=== PATIENT | female | born 1955 | race Caucasian/White ===

== ENCOUNTER → 2017-01-22 | Outpatient (CLI) | payer BC ==
[~2017-01-22] MED LIST: IOPAMIDOL (ISOVUE-300) 100 ML BTL ONE
== END ==
LOC: FIMAGING 10:52
PROVIDERS: ATTEND Family Medicine
DX: N20.0 Calculus of kidney (principal); R31.9 Hematuria, unspecified; I70.0 Atherosclerosis of aorta
CPT/HCPCS: Q9967

== ENCOUNTER → 2017-02-28 | Outpatient (CLI) | payer BC | LOC: FIMAGING 10:01 | PROVIDERS: ATTEND Family Medicine | DX: Z12.31 Encounter for screening mammogram for malignant neoplasm of breast (principal); Z13.820 Encounter for screening for osteoporosis; M85.80 Other specified disorders of bone density and structure, unspecified site; E07.9 Disorder of thyroid, unspecified; Z78.0 Asymptomatic menopausal state | CPT/HCPCS: G0202 ==

== ENCOUNTER 2017-03-05 11:15 | Day surgery (SDC) | payer BC ==
--- NOTE | 2017-03-05 13:06 | PDGENHP ---
History & Physical Chief Complaint: Bilateral renal stones History of Present Illness: Passed two kidney stones. Has bilateral nephrolithiasis by CT. Hyperparathyroidism, hypercalcemia, osteopenic. Diabetes II, on metformin. Hyperlipidemia Cardiorespiratory Assessment: Lungs: clear to auscultation. Heart: RRR, no murmur, 88 bpm.
--- NOTE | 2017-03-05 13:10 | PDPROPOC ---
Sedation Plan of Care Sedation Plan of Care: mental status noted, patient educated of risks, benefits , alternatives, patient can tolerate sedation ASA Classification: ASA 2 Planned drugs: fentanyl, midazolam, other (dexmetatomidine) Mallampati Score: Class 2 Mallampati Reference Image: Patient passed 3-3-2 rule?: Yes
[2017-03-05] MEDS ORDERED: MIDAZOLAM 2 MG/2 ML VIAL IVP PRN (13:20)
[2017-03-05] MEDS ORDERED: HEPARIN 10,000 UNIT/10 ML MDV IVP PRN (13:20)
[2017-03-05] MEDS ORDERED: NALOXONE HCL 0.4 MG/ML INJ IVP PRN (13:20)
[2017-03-05] MEDS ORDERED: GLUCAGON HCL 1 MG VIAL IVP PRN (13:20)
[2017-03-05] MEDS ORDERED: ALTEPLASE 2 MG VIAL IVP PRN (13:20)
[2017-03-05] MEDS ORDERED: PROTAMINE SULFATE 50 MG/5 ML VIAL IVP PRN (13:20)
[2017-03-05] MEDS ORDERED: fentaNYL 100 MCG/2 ML INJ IVP PRN (13:20)
[2017-03-05] MEDS ORDERED: MEPERIDINE 25 MG/ML SYR IVP PRN (13:20)
[2017-03-05] MEDS ORDERED: FLUMAZENIL 0.5 MG/5 ML MDV IVP PRN (13:20)
[2017-03-05] MEDS ORDERED: DEXMEDETOMIDINE IN 0.9 % NACL 50 ML IV ONE (13:30)
[2017-03-05] MEDS ORDERED: NS 1,000 ML IV SCH (13:30)
[2017-03-05] MEDS ORDERED: LIDOCAINE 1% 300 MG/30 ML SDV ONE (14:10)
[2017-03-05] MEDS ORDERED: IOPAMIDOL (ISOVUE-300) 100 ML BTL ONE (14:11)
--- NOTE | 2017-03-05 15:14 | PDRADPN ---
Radiology Procedure Note Date of Procedure: 03/05/17 Radiologist: Julio Ball Anesthesia: IV Sedation (dexmetatomidine, fentanyl, versed) Pre-op Diagnosis: Bilateral renal stones, hyperparathyroidism Post-op Diagnosis: same Indication: Percutaneous nephrostolithotomy scheduled for tomorrow. Procedure: Percutaneous right nephrostomy Finding(s): Access via stone-containing, deformed calyx of lower pole of right kidney. Inf/Abcess present in the surg proc area at time of surgery?: No EBL: Minimal Complications: 0 Drains: Nephrostomy (10 F pigtail.)
[2017-03-05] MEDS ORDERED: ONDANSETRON 4 MG/2 ML VIAL IVP PRN (15:15)
[2017-03-05] MEDS ORDERED: ACETAMINOPHEN 325 MG TAB PO PRN (15:15)
[2017-03-05] MEDS ORDERED: HYDROCODONE/APAP 5/325 TAB PO PRN (15:18)
[2017-03-05] MEDS ORDERED: HYDROCODONE/APAP 5/325 TAB ONE (15:44)
[2017-03-05] MEDS ORDERED: ONDANSETRON 4 MG/2 ML VIAL ONE (15:45)
[2017-03-05 15:58] VITALS: TEMP 98.2
[2017-03-05 16:20] VITALS: RESP 16
[2017-03-05 17:53] VITALS: BP 111/61; O2SAT 93
[2017-03-06] MEDS ORDERED: ONDANSETRON 4 MG/2 ML VIAL ONE (14:38)
== END 2017-03-05 17:54 | disposition home or self-care (01) ==
LOC: FIMAGING 11:15
PROVIDERS: ATTEND Specialist
PROC: BT11YZZ Fluoroscopy of Right Kidney using Other Contrast (ICD-10-PCS; principal; 2017-03-05 15:20)
PROC: 0T9030Z Drainage of Right Kidney with Drainage Device, Percutaneous Approach (ICD-10-PCS; principal; 2017-03-05 15:20)
DX: N20.0 Calculus of kidney (principal); J45.909 Unspecified asthma, uncomplicated; E11.9 Type 2 diabetes mellitus without complications; E20.9 Hypoparathyroidism, unspecified; Z87.442 Personal history of urinary calculi; Z88.2 Allergy status to sulfonamides; Z98.1 Arthrodesis status
CPT/HCPCS: 50432; 99152; 99153; C1729; C1769; J0696; J1644; J2250; J2405; J3010; Q9967

== ENCOUNTER 2017-03-06 10:12 | Observation (INO) | payer BC ==
--- NOTE | 2017-03-05 16:49 | GHP ---
[f rep st] PREOP HISTORY AND PHYSICAL ADMISSION DIAGNOSIS: Staghorn calculus. HISTORY OF PRESENT ILLNESS: This is a lady who has had large calculi in the kidneys. She had a CT scan that showed a 12 x 8 mm right renal stone, along with 4 other stones, and a 20 x 20 x 8 mm left renal stone and 6 mm small right renal lesion. PTH in the past has been greater than 124 with a calcium of 10.2. She is also diabetic. PAST MEDICAL HISTORY: She has had hyperparathyroidism, nephrolithiasis, diabetes, blood in the urine, and asthma. PAST SURGICAL HISTORY: Arthroscopy, , cervical fusion, eyelid surgery , gallbladder, skin cancer. MEDICATIONS: Crestor, lisinopril, Lopreeza, Xigduo XR, and Zyrtec. ALLERGIES: Azithromycin, sulfonamides. FAMILY HISTORY: Diabetes, hypertension, kidney stones, and heart disease. SOCIAL HISTORY: Occasional alcohol consumption. Nonsmoker. REVIEW OF SYSTEMS: Negative cardiac, respiratory, GI, and endocrine, other than the hypoparathyroidism. PHYSICAL EXAMINATION: VITAL SIGNS: Stable. CHEST: Clear. HEART: Regular rate and rhythm. ABDOMEN: Normal. No organomegaly, rebound, or guarding. LOWER EXTREMITIES: Normal. PLAN: She is admitted for a percutaneous nephrostolithotomy. /[id number]/MODL MTDD
[2017-03-06] MEDS ORDERED: LR 1,000 ML IV ONE (10:41)
[2017-03-06] MEDS ORDERED: LIDOCAINE 1% 2 ML INJ ID PRN (10:41)
[2017-03-06] MEDS ORDERED: ceFAZolin 2 GM/SWFI 2 GM/20 ML SYR IVP ONE (10:56)
--- NOTE | 2017-03-06 10:58 | PDHPUP ---
History & Physical Update H&P update statement: This history and physical update is based on an assessment of the patient which was completed after admission or registration (within 24 hours), but prior to the surgery/procedure. H&P update: H&P reviewed & patient examined, no change in patient's condition since H&P completed
--- NOTE | 2017-03-06 10:58 | PDANEPAE ---
ANE History of Present Illness R percutaneous nephrolithostomy ANE Past Medical History - Cardiovascular History Hx Hypertension: No Hx Arrhythmias: No Hx Chest Pain: No Hx Coronary Artery / Peripheral Vascular Disease: No Hx CHF / Valvular Disease: No Hx Palpitations: No - Pulmonary History Hx COPD: No Hx Asthma/Reactive Airway Disease: Yes Hx Recent Upper Respiratory Infection: No Hx Oxygen in Use at Home: No Hx Sleep Apnea: Yes Sleep Apnea Screening Result - Last Documented: Negative Pulmonary History Comment: ASTHMA NOT ACTIVE IN YEARS. POS SLEEP APNEA, on CPAP - Neurologic History Hx Cerebrovascular Accident: No Hx Seizures: No Hx Dementia: No Neurologic History Comment: MIGRAINES - Endocrine History Hx Diabetes: Yes Endocrine History Comment: DM II - METFORMIN, - Renal History Hx Renal Disorders: Yes Renal History Comment: KIDNEY STONES - Liver History Hx Hepatic Disorders: Yes Hepatic History Comment: CHOLECYSTECTOMY. FATTY LIVER - Neurological & Psychiatric Hx Hx Neurological and Psychiatric Disorders: No - Cancer History Hx Cancer: No Cancer History Comment: BASAL CELL SKI - Congenital Disorder History Hx Congenital Disorders: No - GI History GERD: no Hx Gastrointestinal Disorders: No - Other Health History Other Health History: HYPERPARATHYROID - Chronic Pain History Chronic Pain: No - Surgical History Prior Surgeries: EYELID SURG. THUMB L. CERVICAL FUSION. CHOLECYSTECTOMY. C SECTION X2. WISDOM TEETH. SKIN LESIONS BASAL CELL ANE Review of Systems Review of Systems: - Exercise capacity METS (RN): 4 METS ANE Patient History - Allergies Allergies/Adverse Reactions: azithromycin Allergy (Verified 02/14/17 11:23) Rash latex Allergy (Verified 02/20/17 11:21) BLISTERING Sulfa (Sulfonamide Antibiotics) Allergy (Verified 02/14/17 11:22) Rash - Home Medications Home Medications: Carboxymethylcellulose 1% [Refresh Celluvisc (*)] 1 drop EACHEYE DAILY PRN 02/14 [Last Taken 03/06/17 07:30] Cetirizine [ZyrTEC 10 mg (*)] 10 mg PO DAILY PRN 02/14/17 [Last Taken 03/03/17] Cholecalciferol Vit D3 [Vitamin D3 2000 units tab (OTC)] 2,000 units PO DAILY [Last Taken 02/27/17] Dapagliflozin/Metformin HCl [Xigduo Xr 5 mg-1,000 mg Tablet] 1 each PO BID 02/14 [Last Taken 03/05/17 05:00] Estradiol/Norethindrone Acet [Lopreeza 1 mg-0.5 mg Tablet] 1 each PO HS [Last Taken 03/04/17] Ibuprofen [Motrin (*)] 200 mg PO DAILY PRN 02/14/17 [Last Taken 02/25/17] Lisinopril [Zestril 2.5 mg (*)] 2.5 mg PO DAILY 02/14/17 [Last Taken 03/06/17 07 :30] Multivitamins [Multivitamin (*)] 1 each PO DAILY 02/14/17 [Last Taken 02/27/17] [place]-3 Fatty Acids [Fish Oil 1000 mg (*)] 2,000 mg PO DAILY 02/14/17 [Last Taken 02/27/17] Rosuvastatin Calcium [Crestor 5mg] 5 mg PO HS 02/14/17 [Last Taken 03/04/17] - Smoking Hx Smoking Status: Never smoked - Alcohol Use Alcohol Use: Rarely - Family Anes Hx Family Hx Anesthesia Complications: pt's brother's liver became "inflamed" after anesthesia, about 30 years ago ANE Labs/Vital Signs - Vital Signs Blood Pressure: 127/84 Heart Rate: 85 Respiratory Rate: 16 O2 Sat (%): 95 Height: 163.83 cm Weight: 95.254 kg ANE Physical Exam - Airway Neck exam: FROM Mallampati Score: Class 2 Mouth exam: normal dental/mouth exam - Pulmonary Pulmonary: no respiratory distress, clear to auscultation - Cardiovascular Cardiovascular: regular rate and rhythym - ASA Status ASA Status: II ANE Anesthesia Plan Anesthesia Plan: general endotracheal anesthesia
[2017-03-06] MEDS ORDERED: MIDAZOLAM 2 MG/2 ML VIAL IVP ONE (11:02)
[2017-03-06] MEDS ORDERED: PROPOFOL 200 MG/20 ML VIAL ONE (11:05)
[2017-03-06] MEDS ORDERED: fentaNYL 250 MCG/5 ML INJ ONE (11:05)
[2017-03-06] MEDS ORDERED: DEXAMETHASONE 4 MG/ML VIAL ONE (11:05)
[2017-03-06] MEDS ORDERED: RANITIDINE 50 MG/2 ML VIAL ONE (11:05)
[2017-03-06] MEDS ORDERED: ROCURONIUM 50 MG/5 ML VIAL ONE (11:05)
[2017-03-06] MEDS ORDERED: MINERAL OIL 10 ML VIAL ONE (12:12)
[2017-03-06] MEDS ORDERED: NEOSTIGMINE METHYLSULFATE 3 MG/3 ML SYR ONE (13:39)
[2017-03-06] MEDS ORDERED: GLYCOPYRROLATE 0.2 MG/1 ML VIAL ONE (13:39)
[2017-03-06] MEDS ORDERED: NALOXONE HCL 0.4 MG/ML INJ IVP PRN ×2 (13:43→13:51)
[2017-03-06] MEDS ORDERED: ALBUTEROL 3 ML DEYVIAL IH PRN (13:43)
[2017-03-06] MEDS ORDERED: fentaNYL 100 MCG/2 ML INJ IVP PRN (13:43)
[2017-03-06] MEDS ORDERED: ONDANSETRON DISINTEGRATING 4 MG TAB PO PRN (13:51)
[2017-03-06] MEDS ORDERED: ZOLPIDEM TARTRATE 5 MG TAB PO PRN (13:51)
[2017-03-06] MEDS ORDERED: HYDROmorphONE/DILAUDID 6 MG/30 ML PCA IV PRN (13:51)
[2017-03-06] MEDS ORDERED: ACETAMINOPHEN 325 MG TAB PO PRN (13:51)
[2017-03-06] MEDS ORDERED: ONDANSETRON 4 MG/2 ML VIAL IVP PRN (13:51)
--- NOTE | 2017-03-06 13:58 | POSTOPPROG ---
Post Op Note Date of Operation: 03/06/17 Surgeon: Zander Reveles Anesthesiologist: Klever Anesthesia: GET(General Endotracheal) Pre-op Diagnosis: rt nephrolithiasis Post-op Diagnosis: same Indication: same Procedure: PCn Inf/Abcess present in the surg proc area at time of surgery?: No EBL: 50-100 Complications: none Drains: Nephrostomy Specimen(s): stone---dictated note
[2017-03-06] MEDS ORDERED: D5W 1/2 NS 1,000 ML IV SCH (14:00)
--- NOTE | 2017-03-06 14:19 | GOP ---
[f rep st] OPERATIVE REPORT DATE OF OPERATION: 03/06/2017 SURGEON: Zander Reveles MD PREOPERATIVE DIAGNOSIS: Right lower calyceal staghorn calculus. POSTOPERATIVE DIAGNOSIS: Right lower calyceal staghorn calculus. PROCEDURE PERFORMED: Percutaneous nephrostolithotomy. FINDINGS: DESCRIPTION OF PROCEDURE: Lady underwent general anesthesia and after appropriate prep and drape in normal sterile fashion and time-out, the tract was dilated via Interventional Radiology. Then I was able to take the nephroscope to go into the lower pole calyx and grasped the stone and extracted. I was able to push gently, placed the stone through the stenotic infundibulum, but because of bleeding, I elected not to try to do a flexible nephroscopy to take the residual stones in the upper pole of t he kidney out because I did not think I could visualize that appropriately. A nephrostomy tube was p laced per IR. She will be admitted for postoperative care. Antegrade nephrostogram tomorrow, and if everything is healing well, remove it, and then she will undergo percutaneous procedure on the left side at a later date. /[id number]/MODL
[2017-03-06] MEDS ORDERED: IOPAMIDOL (ISOVUE-300) 100 ML BTL ONE (14:44)
[2017-03-06] MEDS ORDERED: fentaNYL 100 MCG/2 ML INJ ONE (14:54)
--- NOTE | 2017-03-06 17:43 | POSTANESTH ---
Post Anesthetic Evaluation Cardiovascular Status: Normal, Stable Respiratory Status: Similar to Pre-op Cond. Level of Consciousness/Mental Status: Can Participate in Eval Pain Control: Adequate, Prn Tx Ordered Nausea/Vomiting Control: Adequate, Prn Tx Ordered Complications Possibly Related to Anesthesia: None Noted
[2017-03-06] MEDS: OXYCODONE/APAP 5/325 TAB PO PRN ×2 (17:51→22:11)
[2017-03-07 04:46] LABS: PLATELET COUNT 215 10^3/uL (150-400)
[2017-03-07 05:44] VITALS: RESP 18
[2017-03-07] MEDS: OXYCODONE/APAP 5/325 TAB PO PRN ×3 (06:34→14:52)
--- NOTE | 2017-03-07 09:26 | SOAPPROG ---
[facility] Progress Note Assessment/Plan: Assessment: post op right PCNL Plan: Will plan on nephrostogram and removal of tube if clear of stones and then d/c. 03/07/17 09:25 Objective: Vital Signs Temp Pulse Resp BP Pulse Ox 36.9 C 76 18 125/71 H 94 03/07/17 08:54 03/07/17 08:54 03/07/17 08:54 03/07/17 08:54 03/07/17 08:54 Laboratory Results 03/07/17 04:12 03/07/17 04:12 03/06/17 03/07/17 03/08/17 05:59 05:59 05:59 Intake Total 3855 Output Total 1960 Balance 1895
[2017-03-07 12:10] VITALS: BP 116/79; PULSE 92; TEMP 98.4; O2SAT 95
[2017-03-07] MEDS ORDERED: IOPAMIDOL (ISOVUE-300) 100 ML BTL ONE (13:04)
--- NOTE | 2017-03-07 16:58 | ASDISCHSUM ---
Discharge Information Plan Status: Medically Cleared to Leave: Discharge Date:03/07/2017 04:30 PM CM D/C Disposition: ADT D/C Disposition:Home, Routine, Self-Care Projected Discharge Date:03/07/2017 04:30 PM Transportation at D/C: Discharge Delay Reason: Follow-Up Date:03/07/2017 04:30 PM Discharge Slot: Final Diagnosis: Placement Information Patient Contact Information Contact Name:MARTHA Relationship: Address: Work Phone: City: [facility] Phone: [facility] Code: Email: Financial Information Financial Class:HMO and PPO Plans Primary Plan Desc: OUT OF STATE PPO Primary Plan Number:[id number] Secondary Plan Desc: Secondary Plan Number: Assessment Information Intervention Information Intervention Type:*Incorrect Registration Date of Service:03/06/2017 03:11 PM Patient Type:Inpatient Staff Member:GLORIA Bell, Emerita Hours: Discipline: Severity: Comment:
== END 2017-03-07 16:30 | disposition home or self-care (01) ==
LOC: F1N 10:12 → INTOOBSV 10:12 → F1N 15:41
PROVIDERS: ADMIT Specialist; ATTEND Specialist
PROC: 0T9030Z Drainage of Right Kidney with Drainage Device, Percutaneous Approach (ICD-10-PCS; 2017-03-06)
PROC: 0TP5X0Z Removal of Drainage Device from Kidney, External Approach (ICD-10-PCS; 2017-03-06)
PROC: 0T7 Urinary System, Dilation (ICD-10-PCS; 2017-03-06)
PROC: 0TC04ZZ Extirpation of Matter from Right Kidney, Percutaneous Endoscopic Approach (ICD-10-PCS; principal; 2017-03-06 11:45)
DX: N20.0 Calculus of kidney (principal); E21.3 Hyperparathyroidism, unspecified; E11.9 Type 2 diabetes mellitus without complications; J45.909 Unspecified asthma, uncomplicated; G43.909 Migraine, unspecified, not intractable, without status migrainosus; Z87.442 Personal history of urinary calculi; Z98.1 Arthrodesis status
CPT/HCPCS: 50081; 50389; 50432; 74425; 74485; 75984; C1729; C1769; C1892; G0378; 82365-90; C1725; J0690; J1100; J1644; J2250; J2704; J2710; J2780; J3010; Q9967

== ENCOUNTER 2017-04-30 07:31 | Day surgery (SDC) | payer BC ==
[~2017-04-30 07:31] MED LIST changes: +ALTEPLASE 2 MG VIAL IVP PRN; +FLUMAZENIL 0.5 MG/5 ML MDV IVP PRN; -IOPAMIDOL (ISOVUE-300) 100 ML BTL ONE; +MEPERIDINE 25 MG/ML SYR IVP PRN; +MIDAZOLAM 2 MG/2 ML VIAL IVP PRN; +NALOXONE HCL 0.4 MG/ML INJ IVP PRN; +NS 1,000 ML IV SCH; +PROTAMINE SULFATE 50 MG/5 ML VIAL IVP PRN; +cefTRIAXone 1 GM in STERILE WATER INJ 10 ML IV ONE; +fentaNYL 100 MCG/2 ML INJ IVP PRN
[2017-04-30] MEDS ORDERED: DEXMEDETOMIDINE IN 0.9 % NACL 50 ML IV SCH (08:00)
--- NOTE | 2017-04-30 08:26 | PDPROPOC ---
Sedation Plan of Care Sedation Plan of Care: vital signs stable, mental status noted, patient educated of risks, benefits, alternatives, patient can tolerate sedation ASA Classification: ASA 2 Planned drugs: fentanyl, midazolam, other Mallampati Score: Class 2 Mallampati Reference Image: Patient passed 3-3-2 rule?: Yes
--- NOTE | 2017-04-30 08:28 | PDGENHP ---
History & Physical Chief Complaint: Lt renal stone, inferior pole History of Present Illness: Had right inferior stone. s/p removal 02/2017. never smoked. Pertinent Past, Social, Family History: sleep apnea, DM2 Relevant Physical Exam: CT reviewed Cardiorespiratory Assessment: RRR. CTA
[2017-04-30] MEDS ORDERED: IOPAMIDOL (ISOVUE-300) 100 ML BTL ONE (08:45)
[2017-04-30] MEDS ORDERED: ACETAMINOPHEN 325 MG TAB PO PRN (11:17)
[2017-04-30] MEDS ORDERED: ONDANSETRON 4 MG/2 ML VIAL IVP PRN (11:17)
--- NOTE | 2017-04-30 11:20 | PDRADPN ---
Radiology Procedure Note Date of Procedure: 04/30/17 Radiologist: Tessie Farrell Anesthesia: IV Sedation (with precedex) Pre-op Diagnosis: LT renal stone Post-op Diagnosis: same Indication: OR access for stone removal Procedure: LT perc neph placement Finding(s): accessed inferior pole, right on stone. Inf/Abcess present in the surg proc area at time of surgery?: No Complications: none
[2017-04-30 11:44] VITALS: TEMP 99
[2017-04-30] MEDS ORDERED: ACETAMINOPHEN 325 MG TAB ONE (12:00)
[2017-04-30 12:03] VITALS: BP 106/61; PULSE 76; RESP 14; O2SAT 91
[2017-04-30] MEDS ORDERED: LIDOCAINE 1% 300 MG/30 ML SDV ONE (13:08)
--- NOTE | 2017-04-30 17:25 | GHP ---
[f rep st] PREOP HISTORY AND PHYSICAL DATE OF ADMISSION: 04/30/2017 This is a 61-year-old lady who is admitted for a percutaneous nephrostolithotomy. By history, she young s had a right lower pole staghorn calculus that was treated with percutaneous nephrostolithotomy. No w she is admitted for a left percutaneous nephrostolithotomy because of a large staghorn calculus. S he has had hyperparathyroidism treated by Dr. Bazzi for this problem. At the present time, she is admi tted for the above procedure. Indications, complications, and risks discussed. Initially, she had a PTH greater than 124 with a serum calcium of 10.2. She is also diabetic. REVIEW OF SYSTEMS: Negative cardiac, respiratory, GI. PHYSICAL EXAMINATION: VITAL SIGNS: Stable. CHEST: Clear. HEART: Regular rate and rhythm. ABDOM EN: Normal. No organomegaly, rebound or guarding. LOWER EXTREMITIES: Normal. At the present time, she is admitted for the above procedure. /[id number]/MODL
[2017-04-30] MEDS ORDERED: MINERAL OIL 10 ML VIAL ONE (18:26)
== END 2017-04-30 12:27 | disposition home or self-care (01) ==
LOC: FIMAGING 07:31
PROVIDERS: ATTEND Specialist
PROC: 0T9130Z Drainage of Left Kidney with Drainage Device, Percutaneous Approach (ICD-10-PCS; principal; 2017-04-30 11:25)
DX: N20.0 Calculus of kidney (principal); E21.3 Hyperparathyroidism, unspecified; E11.9 Type 2 diabetes mellitus without complications; G47.30 Sleep apnea, unspecified; Z87.442 Personal history of urinary calculi; Z88.2 Allergy status to sulfonamides
CPT/HCPCS: 50432; 99152; C1729; C1769; J0696; J1644; J2250; J2310; J3010; Q9967

== ENCOUNTER 2017-05-01 05:55 | Observation (INO) | payer BC ==
[2017-05-01] MEDS ORDERED: LIDOCAINE 1% 2 ML INJ ONE (06:03)
[2017-05-01] MEDS ORDERED: LIDOCAINE 1% 2 ML INJ ID PRN (06:22)
[2017-05-01] MEDS ORDERED: LR 1,000 ML IV ONE (06:22)
[2017-05-01] MEDS ORDERED: ceFAZolin 2 GM/SWFI 2 GM/20 ML SYR IVP ONE (07:02)
--- NOTE | 2017-05-01 07:06 | PDANEPAE ---
ANE Past Medical History - Cardiovascular History Hx Hypertension: No Hx Arrhythmias: No Hx Chest Pain: No Hx Coronary Artery / Peripheral Vascular Disease: No Hx CHF / Valvular Disease: No Hx Palpitations: No Cardiovascular History Comment: lisinipril and crestor taken for diabetes not CV - Pulmonary History Hx COPD: No Hx Asthma/Reactive Airway Disease: Yes Hx Recent Upper Respiratory Infection: No Hx Oxygen in Use at Home: No Hx Sleep Apnea: Yes Sleep Apnea Screening Result - Last Documented: Positive Pulmonary History Comment: ASTHMA NOT ACTIVE IN YEARS. POS SLEEP APNEA, on CPAP - Neurologic History Hx Cerebrovascular Accident: No Hx Seizures: No Hx Dementia: No Neurologic History Comment: MIGRAINES - Endocrine History Hx Diabetes: Yes Endocrine History Comment: DM II - METFORMIN, - Renal History Hx Renal Disorders: Yes Renal History Comment: KIDNEY STONES - Liver History Hx Hepatic Disorders: Yes Hepatic History Comment: CHOLECYSTECTOMY. FATTY LIVER - Neurological & Psychiatric Hx Hx Neurological and Psychiatric Disorders: No - Cancer History Hx Cancer: No Cancer History Comment: BASAL CELL SKI - Congenital Disorder History Hx Congenital Disorders: No - GI History Hx Gastrointestinal Disorders: No - Other Health History Other Health History: HYPERPARATHYROID, - Chronic Pain History Chronic Pain: No - Surgical History Prior Surgeries: EYELID SURG. THUMB L. CERVICAL FUSION. CHOLECYSTECTOMY. C SECTION X2. WISDOM TEETH. SKIN LESIONS BASAL CELL ANE Review of Systems Review of Systems: - Exercise capacity METS (RN): 4 METS ANE Patient History - Allergies Allergies/Adverse Reactions: azithromycin Allergy (Verified 02/14/17 11:23) Rash latex Allergy (Verified 02/20/17 11:21) BLISTERING Sulfa (Sulfonamide Antibiotics) Allergy (Verified 02/14/17 11:22) Rash - Home Medications Home Medications: Carboxymethylcellulose 1% [Refresh Celluvisc (*)] 1 drop EACHEYE DAILY PRN 02/14 [Last Taken 04/29/17] Cetirizine [ZyrTEC 10 mg (*)] 10 mg PO DAILY PRN 02/14/17 [Last Taken 04/29/17] Cholecalciferol Vit D3 [Vitamin D3 2000 units tab (OTC)] 2,000 units PO DAILY [Last Taken 04/27/17] Dapagliflozin/Metformin HCl [Xigduo Xr 5 mg-1,000 mg Tablet] 1 each PO BIDMEAL 02/14/17 [Last Taken 04/30/17] Estradiol/Norethindrone Acet [Lopreeza 1 mg-0.5 mg Tablet] 1 each PO HS [Last Taken 04/29/17] Ibuprofen [Motrin (*)] 200 mg PO DAILY PRN 02/14/17 [Last Taken 04/24/17] Lisinopril [Zestril 2.5 mg (*)] 2.5 mg PO DAILY 02/14/17 [Last Taken 05/01/17] Multivitamins [Multivitamin (*)] 1 each PO DAILY 02/14/17 [Last Taken 04/27/17] [place]-3 Fatty Acids [Fish Oil 1000 mg (*)] 1,000 mg PO DAILY 02/14/17 [Last Taken 04/29/17] Rosuvastatin Calcium [Crestor 5mg] 5 mg PO HS 02/14/17 [Last Taken 04/30/17] - NPO status NPO Since - Liquids (Date): 04/30/17 NPO Since - Liquids (Time): 22:30 NPO Since - Solids (Date): 04/30/17 NPO Since - Solids (Time): 20:00 - Smoking Hx Smoking Status: Never smoked - Family Anes Hx Family Hx Anesthesia Complications: pt's brother's liver became "inflamed" after anesthesia, about 30 years ago ANE Labs/Vital Signs - Vital Signs Blood Pressure: 132/65 Heart Rate: 94 Respiratory Rate: 18 O2 Sat (%): 93 Height: 162.56 cm Weight: 99.79 kg ANE Physical Exam - Airway Mallampati Score: Class 1 - ASA Status ASA Status: III ANE Anesthesia Plan Anesthesia Plan: general endotracheal anesthesia, GA w LMA
[2017-05-01] MEDS ORDERED: fentaNYL 100 MCG/2 ML INJ ONE ×3 (07:19→09:31)
[2017-05-01] MEDS ORDERED: PROPOFOL 200 MG/20 ML VIAL ONE (07:19)
[2017-05-01] MEDS ORDERED: MIDAZOLAM 2 MG/2 ML VIAL ONE (07:19)
[2017-05-01] MEDS ORDERED: ROCURONIUM 50 MG/5 ML VIAL ONE ×2 (07:22→08:26)
[2017-05-01] MEDS ORDERED: METOCLOPRAMIDE 10 MG/2 ML VIAL ONE (07:22)
[2017-05-01] MEDS ORDERED: ONDANSETRON 4 MG/2 ML VIAL ONE (07:22)
[2017-05-01] MEDS ORDERED: SUGAMMADEX SODIUM 200 MG/2 ML VIAL IVP ONE (08:26)
[2017-05-01] MEDS ORDERED: ZOLPIDEM TARTRATE 5 MG TAB PO PRN (08:41)
[2017-05-01] MEDS ORDERED: ACETAMINOPHEN 325 MG TAB PO PRN (08:41)
[2017-05-01] MEDS ORDERED: HYDROmorphONE/DILAUDID 6 MG/30 ML PCA IV PRN (08:41)
[2017-05-01] MEDS ORDERED: ONDANSETRON 4 MG/2 ML VIAL IVP PRN (08:41)
[2017-05-01] MEDS ORDERED: NALOXONE HCL 0.4 MG/ML INJ IVP PRN ×2 (08:41→08:52)
[2017-05-01] MEDS ORDERED: ONDANSETRON DISINTEGRATING 4 MG TAB PO PRN (08:41)
--- NOTE | 2017-05-01 08:41 | POSTOPPROG ---
Post Op Note Date of Operation: 05/01/17 Surgeon: Zander Reveles Anesthesiologist: Anup Anesthesia: GET(General Endotracheal) Pre-op Diagnosis: left staghorn Procedure: PCN Inf/Abcess present in the surg proc area at time of surgery?: No EBL: Minimal Complications: none Drains: Nephrostomy Specimen(s): stone sent, dictated op note
--- NOTE | 2017-05-01 08:44 | GOP ---
[f rep st] OPERATIVE REPORT DATE OF OPERATION: 05/01/2017 SURGEON: Zander Reveles MD LOSS PREVENTION MANAGER: No liaison inspection laboratory assistant. PREOPERATIVE DIAGNOSIS: Left staghorn calculus. POSTOPERATIVE DIAGNOSIS: Left staghorn calculus. PROCEDURE PERFORMED: Nephrostolithotomy. FINDINGS: SPECIMENS: Stone. DESCRIPTION OF PROCEDURE: The lady underwent general anesthesia, was prepped and draped in normal st erile fashion. After dilation of the tract with Interventional Radiology, I was able to take the sco pe and identify a large stone in the lower pole calyx. With the CyberWand I was able to fragment and suck it out. At the end of the procedure, there was no residual stones radiographically or endoscop ically and then at that point, I removed the scope and then a nephrostomy tube placed for IR. The la dy will be admitted overnight for postop care with nephrostogram tomorrow to confirm there is no extr avasation, stones, or occlusion of the ureter and then removal. She tolerated the procedure well. N o complications encountered. /[id number]/MODL
[2017-05-01] MEDS ORDERED: LR 500 ML IV PRN (08:52)
[2017-05-01] MEDS ORDERED: PROMETHAZINE HCL 25 MG/ML INJ IVP PRN (08:52)
[2017-05-01] MEDS ORDERED: ACETAMINOPHEN 500 MG TAB PO PRN (08:52)
[2017-05-01] MEDS ORDERED: HYDROCODONE/APAP 5/325 TAB PO PRN (08:52)
[2017-05-01] MEDS ORDERED: fentaNYL 100 MCG/2 ML INJ IVP PRN (08:52)
[2017-05-01] MEDS ORDERED: ALBUTEROL 3 ML DEYVIAL IH PRN (08:52)
--- NOTE | 2017-05-01 08:53 | POSTANESTH ---
Post Anesthetic Evaluation Cardiovascular Status: Normal, Stable Respiratory Status: Normal, Stable Level of Consciousness/Mental Status: Can Participate in Eval Pain Control: Adequate, Prn Tx Ordered Nausea/Vomiting Control: Adequate, Prn Tx Ordered Complications Possibly Related to Anesthesia: None Noted
[2017-05-01] MEDS ORDERED: IOPAMIDOL (ISOVUE-300) 100 ML BTL ONE (08:55)
[2017-05-01] MEDS: OXYCODONE/APAP 5/325 TAB PO PRN ×3 (11:44→21:07)
[2017-05-01] MEDS: D5W 1/2 NS W/ 20 KCl/L 1,000 ML IV SCH ×2 (11:45→21:07)
[2017-05-02] MEDS: OXYCODONE/APAP 5/325 TAB PO PRN ×2 (02:06→07:11)
[2017-05-02 04:45] VITALS: O2SAT 94
[2017-05-02 05:13] LABS: PLATELET COUNT 215 10^3/uL (150-400)
[2017-05-02] MEDS: D5W 1/2 NS W/ 20 KCl/L 1,000 ML IV SCH (06:21)
--- NOTE | 2017-05-02 07:46 | SOAPPROG ---
[facility] Progress Note Assessment/Plan: Assessment: Staghorn calculus Acute POD # 1, plan for nephrostolithotomy Plan: nephrostogram and after plan dc home, follow up in 4 weeks for renal sono and 24 hour urine all as outpt 05/02/17 07:36 Subjective: doing well Objective: Vital Signs Temp Pulse Resp BP Pulse Ox 36.8 C 88 18 120/69 94 05/02/17 04:44 05/02/17 04:44 05/02/17 04:44 05/02/17 04:44 05/02/17 04:44 Laboratory Results 05/02/17 04:45 05/02/17 04:45 05/01/17 05/02/17 05/03/17 05:59 05:59 05:59 Intake Total 2336 1196 Output Total 3765 Balance -1429 1196 Physical Exam - Physical Exam General Appearance: alert Neck: supple Respiratory: No respiratory distress Cardiac/Chest: regular rate, rhythm Abdomen: soft Back: No CVA tenderness Extremities: non-tender, No calf tenderness, No Kina's sign Neuro/Psych: alert, oriented x 3 ICD10 Worksheet Patient Problems: Problems Problem Status Onset Staghorn calculus Acute
--- NOTE | 2017-05-02 08:13 | GDS ---
[f rep st] DISCHARGE SUMMARY ADMISSION DIAGNOSIS: Left staghorn calculus. DISCHARGE DIAGNOSIS: Left staghorn calculus. PROCEDURE: Percutaneous nephrostolithotomy. HOSPITAL COURSE: The lady was an a.m. admission, had the above procedure performed. Nephrostomy tub e discontinued postop day 1. She will be discharged and follow up with me in 4 weeks as an outpatien t to have a renal sonogram to confirm lack of hydronephrosis and a 24-hour urine for metabolic assess ment. /[id number]/MODL
[2017-05-02] MEDS ORDERED: IOPAMIDOL (ISOVUE-300) 100 ML BTL ONE (08:15)
[2017-05-02] MEDS ORDERED: LIDOCAINE 1% 300 MG/30 ML SDV ONE (09:37)
--- NOTE | 2017-05-02 09:53 | PDRADPN ---
Radiology Procedure Note Date of Procedure: 05/02/17 Radiologist: Tessie Farrell Pre-op Diagnosis: post stone removal Post-op Diagnosis: same Indication: pull nephrostomy tube Procedure: nephrostogram, stent placement Finding(s): No antegrade drainage via ureter. Resolved after stent placement. Inf/Abcess present in the surg proc area at time of surgery?: No Complications: None Drains: Nephrostomy (8Fr, 24cm double J ureteral stent.)
[2017-05-02 10:16] VITALS: BP 134/77; PULSE 89; RESP 16; TEMP 98.3
== END 2017-05-02 11:26 | disposition home or self-care (01) ==
LOC: F1N 05:55 → INTOOBSV 05:55 → F1N 10:41
PROVIDERS: ADMIT Specialist; ATTEND Specialist
PROC: 0T9130Z Drainage of Left Kidney with Drainage Device, Percutaneous Approach (ICD-10-PCS; principal; 2017-05-01 07:15)
PROC: 0TL Urinary System, Occlusion (ICD-10-PCS; principal; 2017-05-01 07:15)
PROC: 0TP5X0Z Removal of Drainage Device from Kidney, External Approach (ICD-10-PCS; principal; 2017-05-01 07:15)
PROC: 0TC14ZZ Extirpation of Matter from Left Kidney, Percutaneous Endoscopic Approach (ICD-10-PCS; principal; 2017-05-01 07:15)
PROC: 0T773DZ Dilation of Left Ureter with Intraluminal Device, Percutaneous Approach (ICD-10-PCS; principal; 2017-05-01 07:15)
PROC: BT121ZZ Fluoroscopy of Left Kidney using Low Osmolar Contrast (ICD-10-PCS; principal; 2017-05-01 07:15)
DX: N20.0 Calculus of kidney (principal); E11.9 Type 2 diabetes mellitus without complications; G47.30 Sleep apnea, unspecified; Z79.84 Long term (current) use of oral hypoglycemic drugs; Z98.1 Arthrodesis status
CPT/HCPCS: 50080; 50389; 50395; 52332; 74425; 74485; 75984; C1729; C1758; C1769; C1894; G0378; C1725; J0690; J1644; J2250; J2405; J2704; J2765; J3010; Q9967

== ENCOUNTER → 2017-09-26 | Outpatient (CLI) | payer BC | LOC: FIMAGING 09:09 | PROVIDERS: ATTEND Internal Medicine | DX: I10 Essential (primary) hypertension (principal) ==

== ENCOUNTER → 2018-04-21 | Outpatient (CLI) | payer OTHER | LOC: FIMAGING 11:35 | PROVIDERS: ATTEND Internal Medicine | DX: Z12.31 Encounter for screening mammogram for malignant neoplasm of breast (principal); Z80.3 Family history of malignant neoplasm of breast ==